=== PATIENT | male | born 1980 | race Caucasian/White ===

== ENCOUNTER 2019-05-03 20:07 | Emergency (ER) | payer OTHER ==
[~2019-05-03] VITALS: Ht 152.4 cm; Wt 63.4 kg
[~2019-05-03 20:07] MED LIST: IBUP800T48 PO
[2019-05-03 20:15] VITALS: BP 130/74; PULSE 80; RESP 16; Ht 152.4 cm; Wt 63.4 kg
[2019-05-03] MEDS ORDERED: KETOROLAC 60 MG INJ IM STA (23:27)
== END 2019-05-04 01:35 | disposition home or self-care (01) ==
LOC: FTE 20:07
DX: M79.641 Pain in right hand (principal)
CPT/HCPCS: 73130; 96372; J1885; Z7502